=== PATIENT | female | born 1970 | race Caucasian/White ===

== ENCOUNTER 2022-02-14 14:58 | Inpatient (IN) ==
--- NOTE | 2022-02-14 15:25 | Emergency Department Note ---
Impression & Plan Stroke ADMIT ED Provider Note HPI: The patient is a 51-year-old female who presents the emergency department with a chief complaint of expressive aphasia that is been ongoing for the past 13 hours. Patient states that she awoke around 2:30 in the morning, states that she was having some slurred speech, states at that time she did feel that she was having some word finding difficulty. Her symptoms seem to worsen throughout the day today, to the point where she is having difficulty forming sentences. On arrival here to the ED she is in no acute distress, she does exhibit some obvious expressive aphasia, she does not have any focal deficits, she ambulates all extremities spontaneously, she is otherwise hemodynamically stable on arrival. ROS: -Neuro: Expressive aphasia *10 point review systems was conducted and is otherwise negative unless stated above *Outpatient medications and allergy history reviewed PE: General: Alert, NAD HEENT: Normocephalic, atraumatic Eyes: Extraocular eye movement is intact, no scleral erythema Pulmonary: Clear to auscultation bilaterally, no wheezing Cardio: Regular rate and rhythm GI: Abdomen is soft, nontender : No suprapubic tenderness MSK: No evidence of trauma or malformation of the extremities, no edema Skin: No evidence of rash Neuro: Alert, no focal deficits, equal bilateral corporate intern strength, no ataxia on [id number] testing bilaterally, follows commands appropriately 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: - An order was placed for continuous cardiac monitoring - Patient was noted to be in sinus rhythm with rate of 80 EKG: Rate: 91 Rhythm: Normal sinus rhythm Intervals: Within normal limits ST changes: No ST elevation Time: 1505 NIH STROKE SCALE: 1A: Level of consciousness Alert; keenly responsive 0 1B: Ask month and age +1 1C: 'Blink eyes' & 'squeeze hands' Performs both tasks 0 2: Horizontal extraocular movements Normal 0 3: Visual mojica No visual loss 0 4: Facial palsy Normal symmetry 0 5A: Left arm motor drift No drift for 10 seconds 0 5B: Right arm motor drift No drift for 10 seconds 0 6A: Left leg motor drift No drift for 5 seconds 0 6B: Right leg motor drift No drift for 5 seconds 0 7: Limb Ataxia No ataxia 0 8: Sensation Normal; no sensory loss 0 9: Language/aphasia Mild-moderate aphasia: some obvious changes, without significant limitation +1 10: Dysarthria Normal 0 11: Extinction/inattention No abnormality 0 TOTAL NIH SCORE = 2 Medical Decision Making: Patient presented to the emergency department with a chief complaint of word finding difficulty, she states that this began about 13 hours prior to arrival therefore not considered a TPA candidate for the symptoms on arrival. She is otherwise hemodynamically stable on my initial assessment, she is in no acute distress, she does not have any other focal deficits on physical examination. He is given an NIH stroke scale of 2 for aphasia and difficulty with answering questions. Shortly after arrival IV was established, lab work obtained, patient was placed on rn cardiac. CT imaging of the head without contrast as well as CT angiography was ordered in both of these imaging studies are unremarkable for any evidence of stroke or intracranial bleeding. Lab work shows slight elevation in creatinine level and slight leukocytosis, patient has not had any recent infectious signs or symptoms. Patient was given an aspirin following negative CT imaging, given high concern for stroke with expressive aphasia I did obtain MRI imaging that does show evidence of what appears to be an acute infarct in the region of the left MCA territory. Patient remained otherwise hemodynamically stable while under my care in the ED, on my reassessment she continues to have expressive aphasia but is not developed any new or worsening symptoms. I discussed the above findings with the on-call hospitalist for [facility], Dr. Joyner, and the patient was admitted in stable condition for further .care Diagnosis: 1. Acute stroke, left MCA distribution 2. Expressive aphasia Disposition: Admission Elijah Landeros DO Emergency Medicine Past Med/Surg History Surgical History Hx of ileostomy Family History Sister Asthma Brother Asthma Mother Diabetes Grandmother (Maternal) Stroke Grandmother (Paternal) Stroke Grandfather (Paternal) Stroke Grandfather (Maternal) Stroke Social History Smoking Status: Current every day smoker Tobacco Type: Cigarettes Feels Safe at Home: Yes Allergies Allergies Allergy/AdvReac Type Severity Reaction Status Date / Time gabapentin Allergy Severe Nausea/Vomi Verified 02/14/22 15:57 ting Sulfa (Sulfonamide Allergy Severe Nausea/Vomi Verified 02/14/22 15:57 Antibiotics) ting acetaminophen Allergy Intermediate N/V Verified 02/14/22 15:57 doxycycline Allergy Intermediate HIVES Verified 02/14/22 15:57 propoxyphene Allergy Intermediate N/V Verified 02/14/22 15:57 Home Meds Home Medications Medication Instructions Recorded Confirmed omeprazole 20 mg capsule,delayed 20 mg PO QAM 08/24/19 02/14/22 release oxycodone 30 mg tablet 30 mg PO Q4H PRN MDD 5 TABLETS/24 08/24/19 02/14/22 HOURS promethazine 25 mg tablet 25 mg PO Q6H PRN 08/24/19 02/14/22 cyanocobalamin (vitamin B-12) 100 mcg IM MONTHLY 01/27/21 02/14/22 1,000 mcg/mL injection solution cyclobenzaprine 5 mg tablet 5 mg PO TID PRN 02/14/22 02/14/22 Previous Rx's Medication Instructions Recorded amlodipine 5 mg tablet 5 mg PO DAILY #30 tab 05/16/21 Results & Data (ED) Vital Signs Vital Signs - 24 hr 02/14/22 14:59 02/14/22 15:42 02/14/22 16:01 Temperature 36.4 C L Temperature Source Temporal Artery Scan Pulse Rate 98 H Pulse Rate [Apical] 76 93 H Pulse Rhythm [Apical] Regular Regular Pulse Strength [Apical] Respiratory Rate 16 20 18 Respiratory Effort / Characteristics Non-Labored Non-Labored Spontaneous Non-Labored Spontaneous Respiratory Depth Normal Normal Normal Respiratory Pattern Regular Regular Blood Pressure 173/96 H Blood Pressure [Right Arm] 136/107 H 141/77 H Blood Pressure Mean 121 Blood Pressure Mean [Right Arm] 116 98 Blood Pressure Position [Right Arm] Sitting Pulse Oximetry 98 95 96 Oxygen Delivery Method Room Air Room Air Room Air Sepsis Recent Fever Within 48 Hours No Sepsis New/Unexplained Change in Mental Status No Sepsis Action Taken by Nursing No Action Required 02/14/22 16:36 02/14/22 18:32 02/14/22 20:59 Temperature Temperature Source Pulse Rate Pulse Rate [Apical] 90 81 Pulse Rhythm [Apical] Regular Regular Pulse Strength [Apical] Normal Respiratory Rate 18 18 Respiratory Effort / Characteristics Non-Labored Non-Labored Spontaneous Respiratory Depth Normal Normal Respiratory Pattern Regular Blood Pressure Blood Pressure [Right Arm] 124/82 157/84 H Blood Pressure Mean Blood Pressure Mean [Right Arm] 96 108 Blood Pressure Position [Right Arm] Pulse Oximetry 96 99 Oxygen Delivery Method Room Air Room Air Room Air Sepsis Recent Fever Within 48 Hours Sepsis New/Unexplained Change in Mental Status Sepsis Action Taken by Nursing Laboratory Data Result diagrams: 02/14/22 15:18 02/14/22 15:18 Lab Results 02/14/22 02/14/22 02/14/22 Range/Units 15:18 15:18 15:18 WBC 12.62 H (4.8-10.8) K/uL RBC 4.60 (4.2-5.4) M/uL Hgb 12.5 (12.0-16.0) g/dL Hct 38.4 (37-47) % MCV 83.5 (80-100) fL MCH 27.2 (25-34) pg MCHC 32.6 (32-36) g/dL RDW Std Deviation 52.4 H (36.4-46.3) fL RDW Coeff of Rich 17.1 H (11.5-14.5) % Plt Count 376 (130-400) K/uL MPV 9.1 (7.4-10.4) fL Immature Gran % (Auto) 0.2 % Neut % (Auto) 73.9 % Lymph % (Auto) 18.5 % [place] % (Auto) 5.5 % Eos % (Auto) 1.7 % Baso % (Auto) 0.2 % Neut # (Auto) 9.32 H (1.4-6.5) K/uL Lymph # (Auto) 2.33 (1.2-3.4) K/uL [place] # (Auto) 0.70 H (0.11-0.59) K/uL Eos # (Auto) 0.22 (0-0.5) K/uL Baso # (Auto) 0.03 (0-0.2) K/uL Immature Gran # (Auto) 0.02 (0.00-0.02) K/uL Polychromasia 1+ Ovalocytes 1+ PT 10.8 (9.0-12.0) Seconds INR 1.0 (0.9-1.1) APTT 24.6 (21.0-31.0) Seconds PTT Ratio 0.9 Sodium 134 L (136-145) mmol/L Potassium 3.9 (3.5-5.1) mmol/L Chloride 102 (98-107) mmol/L Carbon Dioxide 27 (21-32) mmol/L Anion Gap 5 (3-11) BUN 13 (6-23) mg/dl Creatinine 1.24 H (0.6-1.2) mg/dl Est Cr Clr Drug Dosing 50.3 ml/min Est GFR ( Amer) 58.2 ml/min Est GFR (Non-Af Amer) 50.3 ml/min BUN/Creatinine Ratio 10.5 (10-20) Glucose 111 H (70-99(Fasting)) mg/dl POC Glucose (70-99) mg/dl Calcium 9.2 (8.5-10.1) mg/dl Magnesium 1.8 (1.7-2.4) mg/dl Total Bilirubin 0.4 (0.2-1.0) mg/dl AST 11 L (13-39) U/L ALT 11 (7-52) U/L Alkaline Phosphatase 115 H (34-104) U/L Troponin I High Sens 11.0 (0-14) pg/ml Total Protein 7.6 (6.0-8.3) gm/dl Albumin 4.1 (3.4-5.0) gm/dl Globulin 3.5 (2.5-4.0) gm/dl Albumin/Globulin Ratio 1.2 (0.9-2) SARS-CoV-2, RNA, NAAT (NEGATIVE) Blood Type Antibody Screen 02/14/22 02/14/22 02/14/22 Range/Units 15:19 15:32 19:42 WBC (4.8-10.8) K/uL RBC (4.2-5.4) M/uL Hgb (12.0-16.0) g/dL Hct (37-47) % MCV (80-100) fL MCH (25-34) pg MCHC (32-36) g/dL RDW Std Deviation (36.4-46.3) fL RDW Coeff of Rich (11.5-14.5) % Plt Count (130-400) K/uL MPV (7.4-10.4) fL Immature Gran % (Auto) % Neut % (Auto) % Lymph % (Auto) % [place] % (Auto) % Eos % (Auto) % Baso % (Auto) % Neut # (Auto) (1.4-6.5) K/uL Lymph # (Auto) (1.2-3.4) K/uL [place] # (Auto) (0.11-0.59) K/uL Eos # (Auto) (0-0.5) K/uL Baso # (Auto) (0-0.2) K/uL Immature Gran # (Auto) (0.00-0.02) K/uL Polychromasia Ovalocytes PT (9.0-12.0) Seconds INR (0.9-1.1) APTT (21.0-31.0) Seconds PTT Ratio Sodium (136-145) mmol/L Potassium (3.5-5.1) mmol/L Chloride (98-107) mmol/L Carbon Dioxide (21-32) mmol/L Anion Gap (3-11) BUN (6-23) mg/dl Creatinine (0.6-1.2) mg/dl Est Cr Clr Drug Dosing ml/min Est GFR ( Amer) ml/min Est GFR (Non-Af Amer) ml/min BUN/Creatinine Ratio (10-20) Glucose (70-99(Fasting)) mg/dl POC Glucose 114 H (70-99) mg/dl Calcium (8.5-10.1) mg/dl Magnesium (1.7-2.4) mg/dl Total Bilirubin (0.2-1.0) mg/dl AST (13-39) U/L ALT (7-52) U/L Alkaline Phosphatase (34-104) U/L Troponin I High Sens (0-14) pg/ml Total Protein (6.0-8.3) gm/dl Albumin (3.4-5.0) gm/dl Globulin (2.5-4.0) gm/dl Albumin/Globulin Ratio (0.9-2) SARS-CoV-2, RNA, NAAT NEGATIVE (NEGATIVE) Blood Type B Positive Antibody Screen NEGATIVE Administered Medications Discontinued Medications Aspirin (Aspirin Chew 324 Mg) 324 mg PO NOW STA Stop: 02/14/22 17:56 Last Admin: 02/14/22 20:35 Dose: Not Given Documented by: [id number] Ioversol (Optiray 320 125ml) 120 ml IV ONCE ONE Stop: 02/14/22 16:55 Last Admin: 02/14/22 16:55 Dose: 120 ml Documented by: [id number] Imaging Data Radiologist's Impression: Head CT 02/14/22 15:23 CT head/brain wo con CLINICAL HISTORY: 51 years-old Female with Stroke Like Symptoms. Acute st rokelike symptoms TECHNIQUE: Multiple axial CT images of the head were obtained without contrast. A dose lowering technique was utilized adhering to the principles of ALARA. COMPARISON: CTA had and neck of same day, brain MRI 10/08/2021 FINDINGS: No acute intracranial hemorrhage, midline shift, intracranial mass, hydrocephalus, territorial ischemia or abnormal extra-axial collection. White matter hypodensities are better seen on the comparison brain MRI. The calvarium is intact. The paranasal sinuses, mastoid air cells, and middle ear cavities are clear. IMPRESSION: No acute intracranial abnormality. ACT 112: Negative or not required by law. The above report was generated using voice recognition software. It may contain grammatical, syntax or spelling errors. Electronically signed by: Jose Osborn M.D. 02/14/2022 5:01 PM Head CTA 02/14/22 15:23 CT angio neck with con, CT angio head w con CLINICAL HISTORY: 51 years-old Female with Stroke Like Symptoms. Acute strokelike symptoms COMPARISON STUDY: Head CT of same day, brain MRI 10/08/2021 TECHNIQUE: Following the IV administration of Optiray, CT angiogram of the head and neck was performed from the aortic arch to the skull apex. Images are reviewed in the axial, sagittal, and coronal planes. 3-D MIPS images are created and assessed. IV contrast was administered without complication. All measurements were calculated based on NASCET criteria. A dose lowering technique was utilized adhering to the principles of ALARA. CT DOSE: 1025.83 mGy.cm FINDINGS: The imaged pulmonary artery is unremarkable. Three-vessel morphology of the thoracic aortic arch. Patency of the innominate and imaged subclavian arteries. The common and internal carotid arteries are widely patent. No aneurysm, dissection, high-grade stenosis or arterial occlusion. Retropharyngeal course of the internal carotid arteries. Mild atherosclerosis of the supraclinoid segments without high-grade stenosis. There is mild multifocal luminal narrowing of the middle cerebral arteries. Anterior cerebral arteries are widely patent. Dominant left vertebral artery. The vertebral arteries are widely patent. The basilar and posterior cerebral arteries are patent. Mild multifocal luminal narrowing of the posterior cerebral arteries. The cerebral venous sinuses are patent. There is no abnormal intracranial enhancement. No pneumothorax. The lung apices are clear. Unremarkable soft tissues. There is no acute fracture. Mild mucosal thickening of the right maxillary sinus. IMPRESSION:Unremarkable CTA of the head and neck. ACT 112: Negative or not required by law. The above report was generated using voice recognition software. It may contain grammatical, syntax or spelling errors. Electronically signed by: Jose Osborn M.D. 02/14/2022 5:09 PM Neck CTA 02/14/22 15:23 CT angio neck with con, CT angio head w con CLINICAL HISTORY: 51 years-old Female with Stroke Like Symptoms. Acute strokelike symptoms COMPARISON STUDY: Head CT of same day, brain MRI 10/08/2021 TECHNIQUE: Following the IV administration of Optiray, CT angiogram of the head and neck was performed from the aortic arch to the skull apex. Images are reviewed in the axial, sagittal, and coronal planes. 3-D MIPS images are created and assessed. IV contrast was administered without complication. All measurements were calculated based on NASCET criteria. A dose lowering technique was utilized adhering to the principles of ALARA. CT DOSE: 1025.83 mGy.cm FINDINGS: The imaged pulmonary artery is unremarkable. Three-vessel morphology of the t horacic aortic arch. Patency of the innominate and imaged subclavian arteries. The common and internal carotid arteries are widely patent. No aneurysm, dissection, high-grade stenosis or arterial occlusion. Retropharyngeal course of the internal carotid arteries. Mild atherosclerosis of the supraclinoid segments without high-grade stenosis. There is mild multifocal luminal narrowing of the middle cerebral arteries. Anterior cerebral arteries are widely patent. Dominant left vertebral artery. The vertebral arteries are widely patent. The basilar and posterior cerebral arteries are patent. Mild multifocal luminal narrowing of the posterior cerebral arteries. The cerebral venous sinuses are patent. There is no abnormal intracranial enhancement. No pneumothorax. The lung apices are clear. Unremarkable soft tissues. There is no acute fracture. Mild mucosal thickening of the right maxillary sinus. IMPRESSION:Unremarkable CTA of the head and neck. ACT 112: Negative or not required by law. The above report was generated using voice recognition software. It may contain grammatical, syntax or spelling errors. Electronically signed by: Jose Osborn M.D. 02/14/2022 5:09 PM Brain MRI 02/14/22 17:14 MR brain wo con HISTORY: 51 years-old Female Expressive aphasia acute stroke like symptoms in a patient with history of multiple sclerosis COMPARISON: Head CT of same day, brain MRI 10/08/2021 TECHNIQUE: Multiplanar multisequence MRI of the brain was obtained without the use of IV contrast. FINDINGS: Fast Food Team Member localizer images demonstrate no gross extracranial abnormality. There is restricted diffusion with increased T2/FLAIR signal noted within the cortex of the left insula and temporal operculum extending into the left temporal parietal distribution with decreased signal on the ADC map (for example please see images 12 through 16 of series 4). Midline structures appear unremarkable. Degenerative changes of the imaged cervical spine. Stable appearance of the numerous T2/FLAIR hyperintense foci throughout the supratentorial white matter, unchanged from the 10/08/2021 exam. No infratentorial lesions identified. No acute intracranial hemorrhage, midline shift, abnormal extra-axial collection, hydrocephalus or intracranial mass. There is no pathologic blooming artifact on the T2 star series. The cerebral venous sinuses and major arterial flow voids appear patent. The mastoid air cells are clear. There is minimal mucosal thickening of the paranasal sinuses. The skull, orbits and soft tissues are unremarkable. Note is made of disconjugate gaze. IMPRESSION: 1. Restricted diffusion with increased T2/FLAIR signal within the cortical and subcortical left insula and temporal operculum extending into the left temporal parietal distribution. These findings are suggestive of an acute infarct within the left MCA territory. 2. Otherwise stable appearance of the numerous T2/FLAIR hyperintense foci within the supratentorial white matter likely correlating with the patient's known demyelinating disease. ACT 112: Negative or not required by law. The above report was generated using voice recognition software. It may contain grammatical, syntax or spelling errors. Electronically signed by: Jose Osborn M.D. 02/14/2022 6:59 PM Discharge Plan Visit Data Chief Complaint: Stroke/CVA Symptoms Stated Complaint: POSSIBLE STROKE, SLURRED SPEECH, BLURRY VISION ED Provider: Elijah Landeros Discharge Problem: Stroke Patient Disposition: Admitted As Inpatient Forms Stand Alone Forms: [facility], [facility] Prescriptions Prescriptions: No Action oxycodone 30 mg tablet 30 mg PO Q4H MDD 5 TABLETS/24 HOURS PRN (Reason: Pain) RF: 0 promethazine 25 mg tablet 25 mg PO Q6H PRN (Reason: Nausea) RF: 0 omeprazole 20 mg capsule,delayed release(DR/EC) 20 mg PO QAM RF: 0 cyanocobalamin (vitamin B-12) [Vitamin B-12] 1,000 mcg/mL Solution 100 mcg IM MONTHLY RF: 0 amlodipine 5 mg tablet 5 mg PO DAILY Qty: 30 RF: 0 cyclobenzaprine 5 mg tablet 5 mg PO TID PRN (Reason: MUSCLE SPASMS) RF: 0 Referrals Referrals: Robert Fitzgerald MD [Outside Practitioners] - Discharge Problem: Stroke Qualifiers: CVA mechanism: unspecified Qualified Code(s): I63.9 - Cerebral infarction, unspecified
[2022-02-14 15:33] LABS: Hematocrit (blood only) 38.4 % (37-47); Hemoglobin 12.5 g/dL (12.0-16.0); Mean Corpuscular Hemoglobin 27.2 pg (25-34); Mean Corpuscular Hgb Conc 32.6 g/dL (32-36); Mean Corpuscular Volume 83.5 fL (80-100); Mean Platelet Volume 9.1 fL (7.4-10.4); Platelet Count 376 K/uL (130-400); RDW Coefficient of Variation 17.1 % (11.5-14.5); RDW Standard Deviation 52.4 fL (36.4-46.3); White Blood Count 12.62 K/uL (4.8-10.8)
[2022-02-14 15:45] LABS: Partial Thromboplastin Ratio 0.9; Partial Thromboplastin Time 24.6 Seconds (21.0-31.0); Prothrombin Time 10.8 Seconds (9.0-12.0)
[2022-02-14 15:56] LABS: Basophils # (auto) 0.03 K/uL (0-0.2); Basophils % (auto) 0.2 %; Eosinophils # (auto) 0.22 K/uL (0-0.5); Eosinophils % (auto) 1.7 %; Immature Granulocytes # (auto) 0.02 K/uL (0.00-0.02); Immature Granulocytes % (auto) 0.2 %; Lymphocytes # (auto) 2.33 K/uL (1.2-3.4); Lymphocytes % (auto) 18.5 %; Monocytes % (auto) 5.5 %; Neutrophils # (auto) 9.32 K/uL (1.4-6.5); Neutrophils % (auto) 73.9 %; Ovalocytes 1+; Polychromasia 1+
[2022-02-14 16:29] LABS: Albumin Globulin Ratio 1.2 (0.9-2); Albumin Level 4.1 gm/dl (3.4-5.0); BUN Creatinine Ratio 10.5 (10-20); Bilirubin,Total 0.4 mg/dl (0.2-1.0); Calcium 9.2 mg/dl (8.5-10.1); Creatinine Clr Calc Pharmacy 50.3 ml/min; Est GFR (African American) 58.2 ml/min; Est GFR (Non-African American) 50.3 ml/min; Globulin 3.5 gm/dl (2.5-4.0); Magnesium 1.8 mg/dl (1.7-2.4); Potassium 3.9 mmol/L (3.5-5.1); Total Protein 7.6 gm/dl (6.0-8.3)
[2022-02-14] MEDS ORDERED: OPTIRAY 320 125ml IV ONE (16:54)
--- NOTE | 2022-02-14 17:04 | CT Scan Report ---
CT head/brain wo con CLINICAL HISTORY: 51 years-old Female with Stroke Like Symptoms. Acute strokelike symptoms TECHNIQUE: Multiple axial CT images of the head were obtained without contrast. A dose lowering tech nique was utilized adhering to the principles of ALARA. COMPARISON: CTA had and neck of same day, brain MRI 10/08/2021 FINDINGS: No acute intracranial hemorrhage, midline shift, intracranial mass, hydrocephalus, territorial ischem ia or abnormal extra-axial collection. White matter hypodensities are better seen on the comparison b rain MRI. The calvarium is intact. The paranasal sinuses, mastoid air cells, and middle ear cavities are clear . IMPRESSION: No acute intracranial abnormality. ACT 112: Negative or not required by law. The above report was generated using voice recognition software. It may contain grammatical, syntax o r spelling errors. Electronically signed by: Jose Osborn M.D. 02/14/2022 5:01 PM
--- NOTE | 2022-02-14 17:10 | CT Scan Report ---
CT angio neck with con, CT angio head w con CLINICAL HISTORY: 51 years-old Female with Stroke Like Symptoms. Acute strokelike symptoms COMPARISON STUDY: Head CT of same day, brain MRI 10/08/2021 TECHNIQUE: Following the IV administration of Optiray, CT angiogram of the head and neck was performe d from the aortic arch to the skull apex. Images are reviewed in the axial, sagittal, and coronal raffy meme. 3-D MIPS images are created and assessed. IV contrast was administered without complication. All measurements were calculated based on NASCET criteria. A dose lowering technique was utilized adher ing to the principles of ALARA. CT DOSE: 1025.83 mGy.cm FINDINGS: The imaged pulmonary artery is unremarkable. Three-vessel morphology of the thoracic aortic arch. Pat ency of the innominate and imaged subclavian arteries. The common and internal carotid arteries are w idely patent. No aneurysm, dissection, high-grade stenosis or arterial occlusion. Retropharyngeal cou rse of the internal carotid arteries. Mild atherosclerosis of the supraclinoid segments without high- grade stenosis. There is mild multifocal luminal narrowing of the middle cerebral arteries. Anterior cerebral arteries are widely patent. Dominant left vertebral artery. The vertebral arteries are widel y patent. The basilar and posterior cerebral arteries are patent. Mild multifocal luminal narrowing o f the posterior cerebral arteries. The cerebral venous sinuses are patent. There is no abnormal intra cranial enhancement. No pneumothorax. The lung apices are clear. Unremarkable soft tissues. There is no acute fracture. Mi ld mucosal thickening of the right maxillary sinus. IMPRESSION:Unremarkable CTA of the head and neck. ACT 112: Negative or not required by law. The above report was generated using voice recognition software. It may contain grammatical, syntax o r spelling errors. Electronically signed by: Jose Osborn M.D. 02/14/2022 5:09 PM
[2022-02-14] MEDS ORDERED: ASPIRIN CHEW 324 MG PO STA (17:55)
--- NOTE | 2022-02-14 19:01 | Magnetic Resonance Report ---
MR brain wo con HISTORY: 51 years-old Female Expressive aphasia acute stroke like symptoms in a patient with history of multiple sclerosis COMPARISON: Head CT of same day, brain MRI 10/08/2021 TECHNIQUE: Multiplanar multisequence MRI of the brain was obtained without the use of IV contrast. FINDINGS: Learning Administrator localizer images demonstrate no gross extracranial abnormality. There is restricted diffusion w ith increased T2/FLAIR signal noted within the cortex of the left insula and temporal operculum exten ding into the left temporal parietal distribution with decreased signal on the ADC map (for example p lease see images 12 through 16 of series 4). Midline structures appear unremarkable. Degenerative serena nges of the imaged cervical spine. Stable appearance of the numerous T2/FLAIR hyperintense foci throu ghout the supratentorial white matter, unchanged from the 10/08/2021 exam. No infratentorial lesions i dentified. No acute intracranial hemorrhage, midline shift, abnormal extra-axial collection, hydrocephalus or in tracranial mass. There is no pathologic blooming artifact on the T2 star series. The cerebral venous sinuses and major arterial flow voids appear patent. The mastoid air cells are clear. There is minima l mucosal thickening of the paranasal sinuses. The skull, orbits and soft tissues are unremarkable. N ote is made of disconjugate gaze. IMPRESSION: 1. Restricted diffusion with increased T2/FLAIR signal within the cortical and subcortical left insul a and temporal operculum extending into the left temporal parietal distribution. These findings are s uggestive of an acute infarct within the left MCA territory. 2. Otherwise stable appearance of the numerous T2/FLAIR hyperintense foci within the supratentorial w alonzo matter likely correlating with the patient's known demyelinating disease. ACT 112: Negative or not required by law. The above report was generated using voice recognition software. It may contain grammatical, syntax o r spelling errors. Electronically signed by: Jose Osborn M.D. 02/14/2022 6:59 PM
--- NOTE | 2022-02-14 21:20 | History and Physical Report ---
DATE OF ADMISSION: 02/14/2022. CHIEF COMPLAINT: Difficulty speaking. HISTORY OF PRESENT ILLNESS: A 51-year-old female with past medical history significant for hyperlipidemia, hypertension, Crohn's disease, status post ileostomy, currently in remission, not on any medications, history of vitamin D deficiency, chronic kidney disease stage III, history of chronic pain syndrome, chronic abdominal pain, neuropathy, questionable demyelinating disease, chronic back pain, pernicious anemia, tobacco use disorder, presents with word-finding difficulty. The patient says yesterday she did not feel good and around 2:00 a.m., she woke up and having some word-finding difficulty and it progressed. By 3:00, it was a little worse and as this was not getting better, she came to the ER and she was already 13 hours from the start of the systems. In the ER, except for word-finding difficulty, no other complaints. Her CTAs of the head and neck were unremarkable, but MRI scan is showing acute infarct in the left MCA territory. The patient seems to be upset but trying to speak. Once in a while, she is having some word-finding difficulty, but otherwise she is speaking okay. No facial droop. in the room was helping with some of the H and P. The patient denies any headache. No blurred visions, no dizziness, no runny nose, no sore throat, no cough. Yesterday, she felt cold. No fevers, no chest pain, no shortness of breath, no nausea, no abdominal pain. Ileostomy is working okay. Normal bladder movements. She has chronic swelling in the legs. Says her balance is okay. ALLERGIES: GABAPENTIN, SULFA ANTIBIOTICS, ACETAMINOPHEN, DOXYCYCLINE, PROPOXYPHENE. PAST MEDICAL HISTORY: As mentioned above. PAST SURGICAL HISTORY: Freeing of bowel adhesions, laparoscopic right radical nephrectomy for staghorn calculus, reduction of bowel obstruction, removal of colon and ileostomy in 1988. MEDICATIONS: The patient is on amlodipine 5 mg p.o. daily, vitamin B12 100 mcg IM monthly, cyclobenzaprine 5 mg p.o. t.i.d. p.r.n., omeprazole 20 mg p.o. daily, oxycodone 30 mg p.o. q.4 hours p.r.n., promethazine 25 mg p.o. q.6 hours p.r.n. FAMILY HISTORY: Significant for brother has asthma, sister has asthma and colon cancer, mother has diabetes and lung cancer, maternal grandfather and paternal grandfather had stroke, maternal grandmother and paternal grandmother had stroke. SOCIAL HISTORY: . Smokes half pack a day for 28 years. Some days vapes nicotine flavoring devices. No alcohol use. As per Epic, marijuana 7 times a week use at bedtime. REVIEW OF SYSTEMS: As per HPI. Rest of review of systems is negative. PHYSICAL EXAMINATION: GENERAL: The patient is obese, currently has some expressive aphasia. VITAL SIGNS: Temperature 36.4, pulse 81, respiratory rate 18, blood pressure 157/84, oxygen 99% on room air. HEENT: Pupils equal, round and reactive to light. Extraocular muscles intact. No facial droop. Speech is clear. Oral mucosa moist. NECK: No JVD, no neck masses. CARDIOVASCULAR: S1 and S2 heard. Regular rate and rhythm. No murmur, no gallop. RESPIRATORY SYSTEM: Normal AP diameter. No accessory muscle use. No wheezing, no crackles. ABDOMEN: Soft, bowel sounds present, nontender, nondistended. CENTRAL NERVOUS SYSTEM: Alert and oriented. Extraocular muscles intact. Speech is clear. No facial droop. Obeys commands. Able to move her extremities. No pronator drift. Coordination of movements normal. Sensation is intact. Position sense intact. EXTREMITIES: Bilateral lower extremity gross edema present, no erythema seen. LABORATORY DATA: WBC 12.6, hemoglobin 12.5, hematocrit 38.4, platelets 376. Sodium 134, potassium 3.9, chloride 102, bicarbonate 27, BUN 13, creatinine 1.2, serum glucose 111, calcium 9.2, magnesium 1.8, total bilirubin 0.4, AST 11, ALT 11, alkaline phosphatase 115. Troponin I high sensitivity 11. SARS-CoV-2 RNA negative. RADIOGRAPHIC STUDIES: CT of the head without contrast: No acute intracranial abnormality. EKG: Normal sinus rhythm with sinus arrhythmia at a rate of 91. CTA of the head and neck unremarkable. Brain MRI shows restricted diffusion with increased T2 FLAIR signal within the cortical and subcortical left insula and temporal operculum extending into the left temporoparietal distribution. These findings are suggestive of an acute infarct within the left MCA territory. Otherwise stable appearance of numerous hyperintense foci within the supratentorial white matter, likely correlating with the patient's known demyelinating disease. ASSESSMENT AND PLAN: This is a 51-year-old female who presents with word- finding difficulty and found to have acute stroke. 1. Acute cerebrovascular accident: Having like word-finding difficulties since 2:00 a.m. MRI is suggestive of acute infarct within the left middle cerebral artery territory. Aspirin was ordered in the Emergency Room. We will follow with full stroke workup with echocardiogram, monitor in the telemetry floor. Physical therapy, occupational therapy, speech evaluation, neurology evaluation in the a.m. May need Holter on discharge. We will also start on high-dose statin. Follow lipid profile, HbA1c levels. Physical therapy and occupational therapy. Closely monitor. 2. History of hypertension: We will hold amlodipine for now to allow for permissive hypertension. 3. Chronic pain: Continue her home pain medications. 4. Gastroesophageal reflux disease: Continue omeprazole. 5. History of Crohn's disease, status post ileostomy: Currently in remission. 5. Chronic kidney disease stage III: Presents with creatinine of 1.2, close to baseline. Getting fluids. We will follow the repeat laboratories in the a.m. 6. History of demyelinating disease: Follow up with neurology. 7. Tobacco abuse: Needs counseling. 8. Lower extremity chronic edema, lymphedema: we will follow with Doppler to rule out deep venous thrombosis.Follow echo. 9. Deep venous thrombosis prophylaxis: Sequential compression devices. DISPOSITION: Closely monitor in the tele floor. PT, OT prior to discharge. Social service to help with discharge planning. Level 1, full code. Job ID: [id number] [facility]
[2022-02-14] MEDS ORDERED: SODIUM CHLORIDE 0.9% 1000ML 1,000 ML IV SCH (21:30)
[2022-02-14] MEDS ORDERED: CYCLOBENZAPRINE HCL 5 MG TAB PO PRN (21:30)
[2022-02-14] MEDS ORDERED: NITROGLYCERIN SL 0.4 MG/TAB TAB SL PRN (21:30)
[2022-02-14] MEDS ORDERED: ONDANSETRON INJ 2 MG/ML 2 ML VIAL IV PRN (21:30)
[2022-02-14] MEDS ORDERED: POLYETHYLENE (MIRALAX) 17 GM PACK PO PRN (21:30)
[2022-02-14] MEDS ORDERED: PHARMACIST DISCHARGE MED REC CONSULT PRN (21:30)
[2022-02-15] MEDS: oxyCODONE HCL IR 30 MG TAB (IMMEDIATE RELEASE) PO PRN ×2 (00:10→09:10)
--- NOTE | 2022-02-15 07:01 | Electrocardiogram Report ---
Test Reason : Blood Pressure : / mmHG Vent. Rate : 091 BPM Atrial Rate : 091 BPM P-R Int : 144 ms QRS Dur : 080 ms QT Int : 332 ms P-R-T Axes : 051 021 044 degrees QTc Int : 408 ms Normal sinus rhythm with sinus arrhythmia Low voltage QRS When compared with ECG of 16-MAY-2021 16:08, T wave inversion no longer evident in Inferior leads Confirmed by Nehemias Kapadia ([id number]) on 02/15/2022 7:00:36 AM Referred By: Confirmed By:Nehemias Kapadia
[2022-02-15 07:02] LABS: Basophils # (auto) 0.02 K/uL (0-0.2); Basophils % (auto) 0.2 %; Eosinophils % (auto) 3.2 %; Hematocrit (blood only) 33.4 % (37-47); Hemoglobin 10.5 g/dL (12.0-16.0); Immature Granulocytes # (auto) 0.02 K/uL (0.00-0.02); Immature Granulocytes % (auto) 0.2 %; Lymphocytes # (auto) 2.28 K/uL (1.2-3.4); Lymphocytes % (auto) 24.7 %; Mean Corpuscular Hemoglobin 26.1 pg (25-34); Mean Corpuscular Hgb Conc 31.4 g/dL (32-36); Mean Corpuscular Volume 83.1 fL (80-100); Mean Platelet Volume 9.5 fL (7.4-10.4); Monocytes # (auto) 0.69 K/uL (0.11-0.59); Monocytes % (auto) 7.5 %; Neutrophils # (auto) 5.93 K/uL (1.4-6.5); Neutrophils % (auto) 64.2 %; Platelet Count 300 K/uL (130-400); RDW Coefficient of Variation 17.1 % (11.5-14.5); RDW Standard Deviation 52.5 fL (36.4-46.3); Red Blood Count 4.02 M/uL (4.2-5.4); White Blood Count 9.24 K/uL (4.8-10.8)
[2022-02-15 07:21] LABS: BUN Creatinine Ratio 8.5 (10-20); Calcium 8.2 mg/dl (8.5-10.1); Chol HDL Ratio 4.8 (0-5); Creatinine Clr Calc Pharmacy 58.8 ml/min; Est GFR (African American) 70.4 ml/min; Est GFR (Non-African American) 60.7 ml/min; Potassium 3.8 mmol/L (3.5-5.1)
[2022-02-15] MEDS ORDERED: ATORVASTATIN 40 MG TAB PO SCH (09:00)
[2022-02-15] MEDS ORDERED: ASPIRIN 81 MG ECTAB PO SCH (09:00)
[2022-02-15] MEDS ORDERED: PANTOprazole 40 MG TAB PO SCH (09:00)
[2022-02-15 09:39] LABS: Estimated Average Glucose 117 mg/dl; Hemoglobin A1C 5.7 % (4.5-5.6)
--- NOTE | 2022-02-15 10:47 | Ultrasound Report ---
US venous doppler LE BI CLINICAL HISTORY: b/l lower ext edema. dvt? COMPARISON: None available at the time of this dictation. TECHNIQUE: Bilateral lower extremity real-time compression venous ultrasound with Color Doppler imagi ng. Utilizing real-time ultrasonic imaging multiple real time high-resolution ultrasonic images with comp ression and noncompression maneuvers of the deep venous system in addition to color doppler imaging w ere performed from the common femoral vein through the proximal calf veins. FINDINGS: Currently there is normal compressibility of the deep venous system from the common femoral vein thro ugh the proximal calf veins. No current evidence of acute thrombosis is identified. Impression: No evidence of deep venous thrombus. ACT 112: Negative or not required by law. Electronically signed by: Rayray Bowman M.D. 02/15/2022 10:45 AM
--- NOTE | 2022-02-15 13:44 | Hospitalist Progress Note ---
Date of Service February 15, 2022 Assessment & Plan (1) Stroke: Plan: Presented with word finding difficulties. Out of window for tPA. MRI show acute infarct in left MCA territory. Continue aspirin and atorvastatin. Awaiting TTE Speech evaluation noted. Will need outpatient SERVER ASSISTANT Hemoglobin A1c was 5.7. Prediabetes. Provided education about diet and lifestyle modification. We spoke extensively about need to quit smoking. Patient smokes about 2 packs/day and has been smoking since about 18 years old. Awaiting neurology evaluation Awaiting PT/OT evaluation Continue omeprazole for GERD Continue home medication for chronic pain Dopplers of lower extremity did not show any DVT. Admission and Anticipated Discharge Date Admission Date: February 14, 2022 Subjective 51-year-old woman with history of hypertension, hyperlipidemia, Crohn's disease status post ileostomy in remission, CKD 3, chronic pain syndrome, ? Demyelinating disease, tobacco abuse who presented with word finding difficulty. Being managed for left MCA stroke Patient seen and examined. Patient reports improvement in word finding difficulty. Able to understand patient for the most part but still has some word finding difficulty which gets worse when she gets anxious. Denied any headache, dizziness, blurry vision, numbness, focal weakness Denied any fevers, chills, nausea, vomiting Denies abdominal pain, diarrhea constipation Denied dysuria, frequency, urgency Physical Exam Constitutional: + well hydrated and + obese; no acute distress Eyes: PERRL, conjunctivae normal, anicteric sclerae ENMT: external ear and nose normal, oropharynx normal Respiratory: normal respiratory effort, lungs clear to auscultation Cardiovascular: Rate/Rhythm: regular rate and regular rhythm S1-S2 Gastrointestinal (Abdomen): normal bowel sounds, soft, nontender, no hepatosplenomegaly Musculoskeletal: no cyanosis or clubbing, extremities motor strength 5/5 Neurologic: PERRL, EOMI, coordination normal, no facial palsy Has expressive aphasia No focal sensory or motor deficits in the extremities Psychiatric: A+Ox3, euthymic affect Results & Data Results & Data ([facility]) Vital Signs (Past 12 Hours) Vital Signs Temp Pulse Pulse Pulse Pulse Resp BP 02/15/22 12:00 36.6 C 87 18 138/85 02/15/22 10:39 76 02/15/22 07:00 37 C 76 16 118/70 02/15/22 02:53 36.6 C 85 18 120/76 02/15/22 02:00 88 Pulse Ox 02/15/22 12:00 94 02/15/22 10:39 02/15/22 07:00 93 02/15/22 02:53 96 02/15/22 02:00 Laboratory Results Abnormal lab results 02/14/22 02/14/22 02/14/22 Range/Units 15:18 15:18 15:19 WBC 12.62 H (4.8-10.8) K/uL RBC (4.2-5.4) M/uL Hgb (12.0-16.0) g/dL Hct (37-47) % MCHC (32-36) g/dL RDW Std Deviation 52.4 H (36.4-46.3) fL RDW Coeff of Rich 17.1 H (11.5-14.5) % Neut # (Auto) 9.32 H (1.4-6.5) K/uL [place] # (Auto) 0.70 H (0.11-0.59) K/uL Sodium 134 L (136-145) mmol/L Creatinine 1.24 H (0.6-1.2) mg/dl BUN/Creatinine Ratio (10-20) Glucose 111 H (70-99(Fasting)) mg/dl POC Glucose 114 H (70-99) mg/dl Hemoglobin A1c (4.5-5.6) % Calcium (8.5-10.1) mg/dl AST 11 L (13-39) U/L Alkaline Phosphatase 115 H (34-104) U/L 02/15/22 02/15/22 02/15/22 Range/Units 06:05 06:05 06:05 WBC (4.8-10.8) K/uL RBC 4.02 L (4.2-5.4) M/uL Hgb 10.5 L (12.0-16.0) g/dL Hct 33.4 L (37-47) % MCHC 31.4 L (32-36) g/dL RDW Std Deviation 52.5 H (36.4-46.3) fL RDW Coeff of Rich 17.1 H (11.5-14.5) % Neut # (Auto) (1.4-6.5) K/uL [place] # (Auto) 0.69 H (0.11-0.59) K/uL Sodium 135 L (136-145) mmol/L Creatinine (0.6-1.2) mg/dl BUN/Creatinine Ratio 8.5 L (10-20) Glucose (70-99(Fasting)) mg/dl POC Glucose (70-99) mg/dl Hemoglobin A1c 5.7 H (4.5-5.6) % Calcium 8.2 L (8.5-10.1) mg/dl AST (13-39) U/L Alkaline Phosphatase (34-104) U/L (1) Stroke CVA mechanism: unspecified Qualified Code(s): I63.9 - Cerebral infarction, unspecified
--- NOTE | 2022-02-15 14:19 | Neurology Consultation ---
Date of Consultation February 15, 2022 Assessment & Plan (1) Acute CVA (cerebrovascular accident): (2) Expressive aphasia: (3) Hypertension: (4) Demyelinating disorder: (5) Myalgia and myositis: (6) Polyneuropathy: The patient has had an acute left middle cerebral artery ischemic stroke of a peripheral nature resulting in expressive aphasia. She is already making a little improvements today compared to yesterday. She was initiated on 81 milligram aspirin and her risk factors for ischemic stroke that include hypertension and cigarette smoking. In addition, this patient has an underlying idiopathic demyelinating disorder multiple sclerosis has never been completely proven and she is not on any disease modifying therapy for this. This has been stable over the last several years including a recent series of MRIs of the brain, cervical, and thoracic spines which were unchanged /stable. An underlying inflammatory disorder cannot be excluded particularly with the elevated CRP and sedimentation rate back in October of 2021. specific rheumatologic testing has been unremarkable so far. Patient has an underlying polyneuropathy and fibromyalgia condition. This is stable. recommendations: 1. Continue 81 milligram aspirin. 2. Stop cigarette smoking 3. Control blood pressure as you are doing, aiming for a mean arterial pressure of 95-100. 4. I see the statin has been initiated but she is not necessarily high dose statin candidate. 5. Speech therapy 6. I have no other specific neurologic testing or treatment recommendations to make and she can be followed up by Dr. Fernandes as an outpatient in 2 weeks with 1 of our neurology PAs. Please contact me if I can be of further assistance on this case. Overall, I spent a total of 90 minutes with this case including review of records, review of MRI films, direct evaluation the patient bedside, and discussing the case with patient and RN at bedside, as well as Dr. La, including differential diagnosis and treatment options. History of Present Illness Reason for Consultation: Patient is a 51-year-old, who I was asked to see the request of , for neurologic consultation regarding stroke. Requesting Physician: Dr. Joyner Attending Physician: Talia La MD History of Present Illness This patient has a history of hypertension and is a cigarette smoker up to 1/2 packs per day. The patient carries a diagnosis of polyneuropathy, fibromyalgia, and an intere sting demyelinating disease. She has been evaluated extensively with multiple tests, and no one has been able to prove multiple sclerosis. She is followed closely by Dr. Fernandes as an outpatient and is not on any multiple sclerosis disease modifying therapy. However, there is concern about inflammatory disease given her aches and pains and laboratory studies but in October 2021, when she was last seen in Neurology, laboratory studies showed a sed rate of 57 and CRP of 1.4. B12, TSH, Lyme antibody titers, and DENA 12 profile were all unremarkable. Repeat MRIs of the brain showed the same demyelinating spots as previous ( September of 2020). There were no new or active spots. MRI of the cervical spine showed no cord lesions and some degenerative changes at C5-6 , unchanged from September of 2000. MRI of the thoracic spine showed no cord lesions either. I reviewed all of these MRI films. Dr. Fernandes was concerned about perhaps an inflammatory disorder and obtaining a rheumatology consult. There is also consideration of sending her back to [facility] neurology to see if they can more definitively diagnose her demyelinating issues Patient woke at 02:30 on February 14 with trouble speaking. Over the course of the day she became worse and then could not form sentences. She arrived to the emergency room February 14 at 14:59 with a pulse 98, respiratory rate of 16, temperature 36.4, blood pressure 173/96, and O2 saturation 98 percent. She had word-finding issues and an NIH stroke scale of 2. she was out of the window for TNKase. There was slight hyponatremia and mild anemia (which was chronic ) on lab testing. Hemoglobin A1c is 5.7 triglycerides [address] and total cholesterol 158. CT scan of the head was unremarkable. CT angiography of the head and neck was unremarkable as well with no vascular anomalies or stenoses. The patient had a venous Doppler study which was unremarkable, because of lower extremity edema. An MRI of the brain showed is an acute stroke within the cortical/ subcortical left insula and temporal operculum extending to the left temporal parietal head region. Patient had numerous white matter spine is unchanged from the previous study of October 2000. This afternoon she feels mildly improved with her speech as if she is able to get words out better. She has no pain, headache, vision problems, lightheadedness, balance issues, or new weakness / numbness in the limbs. Allergies Allergy/AdvReac Type Severity Reaction Status Date / Time gabapentin Allergy Severe Nausea/Vomi Verified 02/14/22 15:57 ting Sulfa (Sulfonamide Allergy Severe Nausea/Vomi Verified 02/14/22 15:57 Antibiotics) ting acetaminophen Allergy Intermediate N/V Verified 02/14/22 15:57 doxycycline Allergy Intermediate HIVES Verified 02/14/22 15:57 propoxyphene Allergy Intermediate N/V Verified 02/14/22 15:57 Home Medications Medication Instructions Recorded Confirmed Type omeprazole 20 mg capsule,delayed 20 mg PO QAM 08/24/19 02/14/22 History release oxycodone 30 mg tablet 30 mg PO Q4H PRN MDD 5 TABLETS/24 08/24/19 02/14/22 History HOURS promethazine 25 mg tablet 25 mg PO Q6H PRN 08/24/19 02/14/22 History cyanocobalamin (vitamin B-12) 100 mcg IM MONTHLY 01/27/21 02/14/22 History 1,000 mcg/mL injection solution amlodipine 5 mg tablet 5 mg PO DAILY #30 tab 05/16/21 02/14/22 Rx cyclobenzaprine 5 mg tablet 5 mg PO TID PRN 02/14/22 02/14/22 History Patient History Medical History (Updated 02/15/22 @ 14:55 by Daniel Nath MD) Hypertension Surgical History Hx of ileostomy Family History Sister Asthma Brother Asthma Mother , in her 80s of a stroke Diabetes Grandmother (Maternal) Stroke Grandmother (Paternal) Stroke Grandfather (Paternal) Stroke Grandfather (Maternal) Stroke Father , in 80s with black lung disease COPD (chronic obstructive pulmonary disease) Social History (Updated 02/15/22 @ 14:52 by Daniel Nath MD) Smoking Status: Current every day smoker Tobacco Type: Cigarettes packs per day: 1.5; Second Hand Exposure: Yes; Do You Dip or Chew Tobacco: No; Tobacco Cessation Education Requested by Patient: No Hx Alcohol Use: No Hx Substance Use: No Preferred Language: Thai Communication Ability: Effective Acquisition Marketing Manager Required: No Beliefs That Will Affect Care: None Current Living Situation: Family current occupational status: retired and disabled 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 Other Information That Helps Us Care for You: No Feels Safe at Home: Yes Safety Concerns: Feels Safe At This Time Assistive Devices: None Review of Systems Constitutional: no fever, no fatigue and no weakness Eyes: no diplopia, no eye pain and no worsening vision Ear, Nose, Mouth, Throat: no ear pain, no tinnitus, no hearing loss, no dizziness, no snoring, no hoarseness and no dysphagia Respiratory: no cough and no dyspnea Cardiovascular: no chest pain, no palpitations and no lightheadedness Gastrointestinal: no abdominal pain, no nausea and no vomiting Genitourinary: no dysuria, no urinary frequency and no urinary incontinence Musculoskeletal: + back pain; no neck pain, no radicular pain, no joint pain and no myalgia Integumentary: no rash and no lesions Neurologic: + abnormal speech; no gait abnormality, no localized weakness, no generalized weakness, no tingling, no numbness, no tremor(s), no abnormal movements, no headache(s), no confusion and no memory loss Psychiatric: no depression, no irritability, no anxiety, no difficulty concentrating, no confusion and no hallucinations Endocrine: no fatigue and no flushing Hematologic / Lymphatic: no easy bleeding and no easy bruising Allergy / Immunological: no urticaria and no problem reported Exam (Neuro) Physical Exam: The patient is right-handed. The patient is awake, alert, and attentive. Speech is without dysarthria. The patient has trouble coming up with now ounce and specific words. Some words come out fluently but other she is stuck on. She cannot identify I am and say what most pictures are accurately. She can describe what's wrong with the test picture, but has trouble reading words and sentences. Some words she gets but many she is stuck on. Some she can figure out by going over it more than once. The patient can repeat phrases and has normal spontaneous speech. Mentation and thought processes are intact, with orientation to person, place and time, and normal fund of knowledge. Attention and concentration are normal. Mood and affect are normal and appropriate. General appearance and grooming are normal. Short and long-term memory are intact. Pupils are 4 mm bilaterally and reactive to light. Extraocular eye muscles are intact without nystagmus. Visual acuity and visual mojica seem normal grossly to confrontation. There are no deficits to sensation in the face in all 3 distributions of the fifth cranial nerve bilaterally. Corneal reflexes are positive bilaterally. Facial strength and symmetry was normal bilaterally. Hearing seems normal bilaterally. Palate moves well without asymmetry. There is normal sternocleidomastoid and trapezius (shoulder shrug) strength bilaterally. Tongue is midline with good strength bilaterally. Neck has a full range of motion without discomfort. There are no cervical bruits bilaterally. There are no cranial or ocular bruits. Heart is without murmur. There is a regular rhythm and rate. Cervical, thoracic, and lumbar spine are nontender to palpation. GaitIs not tested but stance sitting up in bed is quite normal. With outstretched arms there is no drift. There are no resting, postural, or action tremors. There is no ataxia with finger to nose testing. There is good facility in the hands. No other abnormal involuntary movements are noted. Motor strength is 5/5 diffusely in the arms bilaterally including deltoids, biceps, triceps, brachioradialis, wrist flexors and extensors, greens laborer, and intrinsic hand muscles. Motor strength is 5/5 diffusely in the legs bilaterally including hip flexors, quadriceps, hamstrings, gastrocnemius, tibialis anterior, tibialis posterior, and Peroneii muscles. Toe extensors are normal and there is good bulk in the extensor digitorum brevis muscles bilaterally. The limbs have good tone without rigidity or spasticity. There is no atrophy noted in the muscles. Muscle bulk is normal, there is no tenderness to palpation, no myotonia to percussion, and no fasciculations seen. Sensory examination is intact to touch and pin throughout all 4 limbs diffusely. Reflexes are 2/4 in the biceps, triceps, brachioradialis, and quadriceps tendons bilaterally. Achilles tendon reflexes are absent bilaterally. There is no clonus bilaterally. Toes are downgoing with plantar stimulation bilaterally. Peripheral pulses are present and of normal quality distally in all 4 limbs. There is no peripheral edema noted in the limbs. Results & Data ([facility]) Vital Signs (Past 12 Hours) Vital Signs Temp Pulse Pulse Pulse Pulse Resp BP 02/15/22 12:00 36.6 C 87 18 138/85 02/15/22 10:39 76 02/15/22 07:00 37 C 76 16 118/70 02/15/22 02:53 36.6 C 85 18 120/76 Pulse Ox 02/15/22 12:00 94 02/15/22 10:39 02/15/22 07:00 93 02/15/22 02:53 96 PG Care Time/CCT Total # of Minutes Spent Total Time Spent with Patient: Total time spent is greater than 50% in coordination of care (as documented) at patient's floor/unit and/or counseling patient: Coding Level of Care Code 01313 Inpt Consult Level 5 Diagnoses Acute CVA (cerebrovascular accident) I63.9 Expressive aphasia R47.01 Hypertension I10 Demyelinating disorder G37.9 Myalgia and myositis Polyneuropathy G62.9 Time Spent (min) 90
[2022-02-15] MEDS ORDERED: STROKE PATIENT DISCHARGE STA (15:41)
--- NOTE | 2022-02-15 15:42 | Discharge Summary ---
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 The patient says yesterday she did not feel good and around 2:00 a.m., she woke up and having some word-finding difficulty and it progressed. By 3:00, it was a little worse and as this was not getting better, she came to the ER and she was already 13 hours from the start of the systems. In the ER, except for word-finding difficulty, no other complaints. Her CTAs of the head and neck were unremarkable, but MRI scan is showing acute infarct in the left MCA territory. The patient seems to be upset but trying to speak. Once in a while, she is having some word-finding difficulty, but otherwise she is speaking okay. No facial droop. in the room was helping with some of the H and P. The patient denies any headache. No blurred visions, no dizziness, no runny nose, no sore throat, no cough. Yesterday, she felt cold. No fevers, no chest pain, no shortness of breath, no nausea, no abdominal pain. Ileostomy is working okay. Normal bladder movements. She has chronic swelling in the legs. Says her balance is okay. Admission Exam Per Admitting Provider GENERAL: The patient is obese, currently has some expressive aphasia. VITAL SIGNS: Temperature 36.4, pulse 81, respiratory rate 18, blood pressure 157/84, oxygen 99% on room air. HEENT: Pupils equal, round and reactive to light. Extraocular muscles intact. No facial droop. Speech is clear. Oral mucosa moist. NECK: No JVD, no neck masses. CARDIOVASCULAR: S1 and S2 heard. Regular rate and rhythm. No murmur, no gallop. RESPIRATORY SYSTEM: Normal AP diameter. No accessory muscle use. No wheezing, no crackles. ABDOMEN: Soft, bowel sounds present, nontender, nondistended. CENTRAL NERVOUS SYSTEM: Alert and oriented. Extraocular muscles intact. Speech is clear. No facial droop. Obeys commands. Able to move her extremities. No pronator drift. Coordination of movements normal. Sensation is intact. Position sense intact. EXTREMITIES: Bilateral lower extremity gross edema present, no erythema seen. Principal Diagnosis Left MCA stroke Discharge Exam Constitutional + well hydrated and + obese; no acute distress Eyes PERRL, conjunctivae normal, anicteric sclerae ENMT external ear and nose normal, oropharynx normal Respiratory normal respiratory effort, lungs clear to auscultation Cardiovascular Rate/Rhythm: regular rate and regular rhythm S1 S2 Gastrointestinal (Abdomen) normal bowel sounds, soft, nontender, no hepatosplenomegaly Musculoskeletal no cyanosis or clubbing, extremities motor strength 5/5 Neurologic Expressive dysphasia PERRL, EOMI, coordination normal, no facial palsy No focal sensory or motor deficits in the extremities Psychiatric A+Ox3, euthymic affect Discharge Data Allergies Allergy/AdvReac Type Severity Reaction Status Date / Time gabapentin Allergy Severe Nausea/Vomi Verified 02/14/22 15:57 ting Sulfa (Sulfonamide Allergy Severe Nausea/Vomi Verified 02/14/22 15:57 Antibiotics) ting acetaminophen Allergy Intermediate N/V Verified 02/14/22 15:57 doxycycline Allergy Intermediate HIVES Verified 02/14/22 15:57 propoxyphene Allergy Intermediate N/V Verified 02/14/22 15:57 Consultations 02/14/22 19:23 ED Decision to Admit Stat 02/15/22 09:07 Consult Neurology Routine Ordered Studies 02/14/22 15:23 CT angio head w con Stat CT angio neck with con Stat The imaged pulmonary artery is unremarkable. Three-vessel morphology of the thoracic aortic arch. Patency of the innominate and imaged subclavian arteries. The common and internal carotid arteries are widely patent. No aneurysm, dissection, high-grade stenosis or arterial occlusion. Retropharyngeal course of the internal carotid arteries. Mild atherosclerosis of the supraclinoid segments without high-grade stenosis. There is mild multifocal luminal narrowing of the middle cerebral arteries. Anterior cerebral arteries are widely patent. Dominant left vertebral artery. The vertebral arteries are widely patent. The basilar and posterior cerebral arteries are patent. Mild multifocal luminal narrowing of the posterior cerebral arteries. The cerebral venous sinuses are patent. There is no abnormal intracranial enhancement. No pneumothorax. The lung apices are clear. Unremarkable soft tissues. There is no acute fracture. Mild mucosal thickening of the right maxillary sinus. IMPRESSION:Unremarkable CTA of the head and neck. CT head/brain wo con Stat No acute intracranial hemorrhage, midline shift, intracranial mass, hydrocephalus, territorial ischemia or abnormal extra-axial collection. White matter hypodensities are better seen on the comparison brain MRI. The calvarium is intact. The paranasal sinuses, mastoid air cells, and middle e ar cavities are clear. IMPRESSION: No acute intracranial abnormality. 02/14/22 17:14 MR brain wo con Stat [employer] Therapist localizer images demonstrate no gross extracranial abnormality. There is restricted diffusion with increased T2/FLAIR signal noted within the cortex of the left insula and temporal operculum extending into the left temporal parietal distribution with decreased signal on the ADC map (for example please see images 12 through 16 of series 4). Midline structures appear unremarkable. Degenerative changes of the imaged cervical spine. Stable appearance of the numerous T2/FLAIR hyperintense foci throughout the supratentorial white matter, unchanged from the 10/08/2021 exam. No infratentorial lesions identified. No acute intracranial hemorrhage, midline shift, abnormal extra-axial collection, hydrocephalus or intracranial mass. There is no pathologic blooming artifact on the T2 star series. The cerebral venous sinuses and major arterial flow voids appear patent. The mastoid air cells are clear. There is minimal mucosal thickening of the paranasal sinuses. The skull, orbits and soft tissues are unremarkable. Note is made of disconjugate gaze. IMPRESSION: 1. Restricted diffusion with increased T2/FLAIR signal within the cortical and subcortical left insula and temporal operculum extending into the left temporal parietal distribution. These findings are suggestive of an acute infarct within the left MCA territory. 2. Otherwise stable appearance of the numerous T2/FLAIR hyperintense foci within the supratentorial white matter likely correlating with the patient's known demyelinating disease. 02/15/22 US venous doppler LE BI Routine Currently there is normal compressibility of the deep venous system from the common femoral vein through the proximal calf veins. No current evidence of acute thrombosis is identified. Impression: No evidence of deep venous thrombus Hospital Course (1) Stroke: Presented with word finding difficulties. Was out of window for tPA. MRI show acute infarct in left MCA territory. Started aspirin and atorvastatin. Echocardiogram reviewed. Normal EF 60-65%, mild conc LVH, no valvular disease, no evidence of ASD Was evaluated by Speech therapist. Will need outpatient [facility] Hemoglobin A1c was 5.7. Prediabetes. Provided education about diet and lifestyle modification. We spoke extensively about need to quit smoking. Patient smokes about 2 packs/day and has been smoking since about 18 years old. PCP to arrange holter monitoring or zio patch test to rule out dysrhythmia Was evaluated by Neurologist. Patient to follow up with her Neurologist Continue omeprazole for GERD Continue home medication for chronic pain Total Time Total Time Spent Total Time Spent (In Minutes): 45 Total Time Includes: Examination of the Patient, Discharge Planning, Medication Reconciliation and Communication With Other Providers Discharge Plan Discharge Items Patient Disposition: Home - Self-Care Reason For Visit: Word finding difficulty Discharge Diagnosis: Stroke Activity: Resume your previous activity Non-emergency contact: Primary Care Provider and Neurologist Call non-emergency contact if: you have any medication questions and your symptoms worsen Follow-up/Referrals: LON PRATT [Other] Diet: Heart Healthy Addtl Attending Provider Instructions: Mrs Robles. You came to the hospital complaining of word finding difficulty. You were evaluated and found to have a stroke. You were started on aspirin and atorvastatin. It is extremely important that you quit smoking cigarettes. Please ensure follow up with your Primary Doctor and your Neurologist Your Primary Doctor should arrange outpatient holter monitor or zio patch. You can also follow up with speech therapist outpatient as we discussed. It was a pleasure taking care of you. Pending Studies at Discharge: No Stand-Alone Forms: Medications to Prevent Stroke, [facility] [employer], Smoking Cessation Medications and DC Order Prescriptions: New atorvastatin 40 mg Tablet 40 mg PO QAM 30 Days Qty: 30 RF: 0 aspirin 81 mg Tablet,Delayed Release (Dr/Ec) 81 mg PO QAM 30 Days Qty: 30 RF: 0 Continued oxycodone 30 mg tablet 30 mg PO Q4H MDD 5 TABLETS/24 HOURS PRN (Reason: Pain) RF: 0 promethazine 25 mg tablet 25 mg PO Q6H PRN (Reason: Nausea) RF: 0 omeprazole 20 mg capsule,delayed release(DR/EC) 20 mg PO QAM RF: 0 cyanocobalamin (vitamin B-12) 1,000 mcg/mL Solution 100 mcg IM MONTHLY RF: 0 amlodipine 5 mg tablet 5 mg PO DAILY Qty: 30 RF: 0 cyclobenzaprine 5 mg tablet 5 mg PO TID PRN (Reason: MUSCLE SPASMS) RF: 0 Discharge Orders: Discharge Order (Routine); Ordered 02/15/22 Ordered By: Talia La Admission Data Admit Date/Time: 02/14/22 20:07 Attending Provider: Talia La I. Admit Provider: Raul Joyner Other Providers: Raul Joyner ; Daniel Nath Other Interventions: Discharge Summary Assessment (RN) Last Done: 02/15/22 15:54
--- NOTE | 2022-02-15 15:55 | Pharmacy Report ---
Pharmacist Stroke Counseling - Date of Service February 15, 2022 - Scope: Pharmacy has been consulted to provide medication discharge counseling for this patient admitted with [ischemic stroke] [hemorrhagic stroke] [transient ischemic attack] as per the Pharmacist Discharge Counseling for Stroke Patients [employer] . - Medications on Discharge: Home Medications Medication Instructions Recorded Confirmed omeprazole 20 mg capsule,delayed 20 mg PO QAM 08/24/19 02/14/22 release oxycodone 30 mg tablet 30 mg PO Q4H PRN MDD 5 TABLETS/24 08/24/19 02/14/22 HOURS promethazine 25 mg tablet 25 mg PO Q6H PRN 08/24/19 02/14/22 cyanocobalamin (vitamin B-12) 100 mcg IM MONTHLY 01/27/21 02/14/22 1,000 mcg/mL injection solution cyclobenzaprine 5 mg tablet 5 mg PO TID PRN 02/14/22 02/14/22 New Rx's Medication Instructions Recorded amlodipine 5 mg tablet 5 mg PO DAILY #30 tab 05/16/21 aspirin 81 mg tablet,delayed 81 mg PO QAM 30 Days #30 tab 02/15/22 release atorvastatin 40 mg tablet 40 mg PO QAM 30 Days #30 tab 02/15/22 - Action: The above medications, specifically ones for stroke treatment/prophylaxis, have been reviewed in detail with the patient and/or patient senior customer service representative(s) prior to discharge. This includes indication, common adverse reactions, drug interactions, and medication administration. Medication counseling has been employed using the teach-back method to ensure understanding. - Outcome: The patient and/or patient senior customer service representative(s) have demonstrated understanding of the medications. Thank you for allowing pharmacy to be involved in the care of this patient. Please call [phone] with any additional questions
== END 2022-02-15 16:30 | disposition home or self-care (01) | DRG 65 ==
LOC: ED 14:58 → 2S 20:07
DX: G37.9 Demyelinating disease of central nervous system, unspecified; G89.4 Chronic pain syndrome; E66.9 Obesity, unspecified; Z88.8 Allergy status to other drugs, medicaments and biological substances; Z88.5 Allergy status to narcotic agent; R29.702 NIHSS score 2; D64.9 Anemia, unspecified; Z88.1 Allergy status to other antibiotic agents; N18.30 Chronic kidney disease, stage 3 unspecified; I12.9 Hypertensive chronic kidney disease with stage 1 through stage 4 chronic kidney disease, or unspecified chronic kidney disease; Z68.37 Body mass index [BMI] 37.0-37.9, adult; G62.9 Polyneuropathy, unspecified; K50.90 Crohn's disease, unspecified, without complications; Z88.2 Allergy status to sulfonamides; E78.5 Hyperlipidemia, unspecified; Z90.5 Acquired absence of kidney; K21.9 Gastro-esophageal reflux disease without esophagitis; E87.1 Hypo-osmolality and hyponatremia; Z88.6 Allergy status to analgesic agent; I63.512 Cerebral infarction due to unspecified occlusion or stenosis of left middle cerebral artery; R47.01 Aphasia; F17.210 Nicotine dependence, cigarettes, uncomplicated